=== PATIENT | male | born 1945 | race Caucasian/White ===

== ENCOUNTER → 2021-07-10 | Outpatient (CLI) | payer OTHER ==
[~2021-07-10] MED LIST: ALLOPURINOL300 MG PO; ASPIRIN81 M1 PO; ATORVASTATIN CA10 M1 PO; BUMETANIDE2 MG PO; CARVEDILOL25 MG PO; CLONIDINE0.3 MG PO; EPIPEN 2-PAK1 MG/ML MR; GLYBURIDE5 MG PO; ISOSORBIDE MONO30 MG PO; MAGNESIUM250 M1 PO; MEDROL DOSEPAK4 MG PO; METFORMIN500 MG PO; POTASSIUM CHLO10 ME5 PO; VITAMIN D31000 IU PO; ZESTRIL40 MG PO
== END | disposition home or self-care (01) ==
LOC: RESCLI 01:03
PROVIDERS: ATTEND Emergency Medicine
DX: I48.20 Chronic atrial fibrillation, unspecified (principal); E78.2 Mixed hyperlipidemia; I25.10 Atherosclerotic heart disease of native coronary artery without angina pectoris; E11.42 Type 2 diabetes mellitus with diabetic polyneuropathy; I10 Essential (primary) hypertension; B36.9 Superficial mycosis, unspecified; I50.22 Chronic systolic (congestive) heart failure; Z87.891 Personal history of nicotine dependence; Z79.899 Other long term (current) drug therapy; Z98.890 Other specified postprocedural states

== ENCOUNTER → 2021-11-26 | Outpatient (CLI) | payer OTHER ==
[~2021-11-26] MED LIST changes: +FUROSEMIDE80 MG PO; -ISOSORBIDE MONO30 MG PO; +Imdur SA60 MG PO; +OZEMPIC0.25 MG/01 SQ; +XARELTO15 M1 PO
== END | disposition home or self-care (01) ==
LOC: RESCLI 05:48
PROVIDERS: ATTEND Internal Medicine
DX: I13.0 Hypertensive heart and chronic kidney disease with heart failure and stage 1 through stage 4 chronic kidney disease, or unspecified chronic kidney disease (principal); I25.10 Atherosclerotic heart disease of native coronary artery without angina pectoris; I50.22 Chronic systolic (congestive) heart failure; E78.2 Mixed hyperlipidemia; N18.9 Chronic kidney disease, unspecified; I48.20 Chronic atrial fibrillation, unspecified; E11.42 Type 2 diabetes mellitus with diabetic polyneuropathy; B36.9 Superficial mycosis, unspecified; Z87.891 Personal history of nicotine dependence; Z79.899 Other long term (current) drug therapy; Z79.82 Long term (current) use of aspirin; Z79.01 Long term (current) use of anticoagulants

== ENCOUNTER 2021-12-04 20:53 | Inpatient (IN) | payer OTHER ==
[~2021-12-04] VITALS: Ht 177.8 cm; Wt 104.3 kg
[~2021-12-04 20:53] MED LIST changes: -FUROSEMIDE80 MG PO; -OZEMPIC0.25 MG/01 SQ; -XARELTO15 M1 PO
[2021-12-04 21:00] VITALS: BP 164/93
[2021-12-04 21:15] LABS: BASO # 0.1 10*3/uL (0.0-0.1); BASO % 0.7 % (0.0-1.0); EOS # 0.4 10*3/uL (0.0-0.4); EOS % 3.1 % (1.0-4.0); LYMPH # 2.2 10*3/uL (1.3-4.4); LYMPH % 16.9 % (27.0-41.0); MEAN CELL VOLUME 87.3 fl (80.0-94.0); MEAN CORPUSCULAR HGB 28.8 pg (27.0-31.0); MEAN PLATELET VOLUME 8.4 fl (9.6-12.3); MONO # 0.9 10*3/uL (0.1-1.0); MONO % 6.8 % (3.0-9.0); NEUT # 9.6 10*3/uL (2.3-7.9); NEUT % 72.1 % (47.0-73.0); PLATELET COUNT AUTOMATED 229 10*3/uL (130-400); RED BLOOD COUNT 5.04 10*6/uL (4.50-5.90); RED CELL DISTRI WIDTH 14.4 % (0-14.5); WHITE BLOOD COUNT 13.2 10*3/uL (4.8-10.8)
[2021-12-04 21:26] LABS: ACT PARTIAL THROMBO TIME 30.6 SECONDS (20.0-32.1); INTERNATIONAL NORM RATIO 1.2 (2.0-3.5)
[2021-12-04 21:31] LABS: CREATININE 2.33 mg/dL (0.70-1.30); POTASSIUM 4.2 mmol/L (3.5-5.1); TOTAL PROTEIN 7.3 gm/dL (6.4-8.2)
[2021-12-04 21:35] VITALS: BP 168/103
[2021-12-04 22:02] VITALS: BP 128/90
[2021-12-04 22:26] VITALS: BP 153/89
[2021-12-04] MEDS ORDERED: FUROSEMIDE80 MG PO (22:40)
[2021-12-04] MEDS ORDERED: XARELTO15 M1 PO (22:41)
[2021-12-04] MEDS ORDERED: OZEMPIC0.25 MG/01 SQ (22:42)
[2021-12-04 23:49] VITALS: BP 142/106
[2021-12-05] VITALS (8 sets, daily range): BP systolic 133–180; BP diastolic 70–91
[2021-12-05 00:36] LABS: ABG BASE EXCESS 2.1 mmol/L (-2.0-2.0); ARTERIAL BLOOD GAS PH 7.399 (7.35-7.45); ARTERIAL BLOOD GAS PO2 224.7 (80-90)
[2021-12-05 04:07] LABS: BASO # 0.1 10*3/uL (0.0-0.1); BASO % 0.5 % (0.0-1.0); EOS # 0.1 10*3/uL (0.0-0.4); EOS % 1.3 % (1.0-4.0); LYMPH # 1.7 10*3/uL (1.3-4.4); LYMPH % 17.6 % (27.0-41.0); MEAN CELL VOLUME 86.5 fl (80.0-94.0); MEAN CORPUSCULAR HGB 28.8 pg (27.0-31.0); MEAN CORPUSCULAR HGB CONC 33.3 g/dl (33.0-37.0); MEAN PLATELET VOLUME 8.4 fl (9.6-12.3); MONO # 0.7 10*3/uL (0.1-1.0); MONO % 7.8 % (3.0-9.0); NEUT # 6.9 10*3/uL (2.3-7.9); NEUT % 72.5 % (47.0-73.0); PLATELET COUNT AUTOMATED 168 10*3/uL (130-400); RED BLOOD COUNT 4.51 10*6/uL (4.50-5.90); RED CELL DISTRI WIDTH 14.3 % (0-14.5); WHITE BLOOD COUNT 9.5 10*3/uL (4.8-10.8)
[2021-12-05 04:29] LABS: CREATININE 2.21 mg/dL (0.70-1.30); POTASSIUM 3.8 mmol/L (3.5-5.1); TOTAL PROTEIN 6.5 gm/dL (6.4-8.2)
== END 2021-12-05 10:14 | disposition short-term general hospital (02) | DRG 871 ==
LOC: ED 20:53 → EDHOLD 23:05
PROVIDERS: Emergency Medicine; Internal Medicine; ADMIT Internal Medicine; ATTEND Internal Medicine
PROC: 5A09357 Assistance with Respiratory Ventilation, Less than 24 Consecutive Hours, Continuous Positive Airway Pressure (ICD-10-PCS; principal; 2021-12-04)
DX: A41.9 Sepsis, unspecified organism (principal); I21.4 Non-ST elevation (NSTEMI) myocardial infarction; N17.0 Acute kidney failure with tubular necrosis; J96.01 Acute respiratory failure with hypoxia; J18.9 Pneumonia, unspecified organism; J81.0 Acute pulmonary edema; I13.0 Hypertensive heart and chronic kidney disease with heart failure and stage 1 through stage 4 chronic kidney disease, or unspecified chronic kidney disease; J44.0 Chronic obstructive pulmonary disease with (acute) lower respiratory infection; J44.1 Chronic obstructive pulmonary disease with (acute) exacerbation; N18.9 Chronic kidney disease, unspecified; I48.91 Unspecified atrial fibrillation; I50.9 Heart failure, unspecified; R65.20 Severe sepsis without septic shock; E11.65 Type 2 diabetes mellitus with hyperglycemia; I25.10 Atherosclerotic heart disease of native coronary artery without angina pectoris; E78.5 Hyperlipidemia, unspecified; Z95.1 Presence of aortocoronary bypass graft; Z95.5 Presence of coronary angioplasty implant and graft; Z87.891 Personal history of nicotine dependence; Z82.49 Family history of ischemic heart disease and other diseases of the circulatory system